=== PATIENT | male | born 2000 | race Two or more races ===

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

== ENCOUNTER 2022-04-30 23:16 | Emergency (ER) | payer MEDICAID ==
[~2022-04-30] VITALS: Ht 172.7 cm; Wt 78.0 kg
[2022-05-01] MEDS ORDERED: ONDANSETRON HCL 4MG/2ML INJ IV STA (00:53)
[2022-05-01] MEDS ORDERED: MORPHINE SULFATE 4 MG/ML CPJ (NOT FOR IM USE) IV STA (00:53)
[2022-05-01] MEDS ORDERED: TETANUS, DIPHTHERIA, PERTUSSIS VAC/PF 0.5ML (>10YR OLD) IM ONE (01:00)
[2022-05-01] MEDS ORDERED: SODIUM CHLORIDE 0.9% 1,000 ML IV ONE (01:00)
[2022-05-01] MEDS ORDERED: CEFAZOLIN 1000MG PREMIX 50 ML IV ONE (01:00)
[2022-05-01 01:35] LABS: BASOPHILS % 0.2 % (0.0-2.0); EOSINOPHILS % 3.9 % (0.0-5.0); HEMATOCRIT. 40.5 % (42.0-52.0); HEMOGLOBIN. 13.7 g/dL (14.0-18.0); LYMPHOCYTES % 21.5 % (20.0-50.0); MEAN CORPUSCULAR HEMOGLOBIN 30.3 pg (28.0-32.0); MEAN CORPUSCULAR VOLUME 89.9 fL (80.0-94.0); MONOCYTES % 4.8 % (2.0-8.0); NEUTROPHILS % 69.6 % (40.0-76.0); PLATELET 342 x1000/uL (130-400); RED BLOOD CELL COUNT 4.51 mill/uL (4.7-6.1); RED CELL DISTRIBUTION WIDTH 12.7 % (11.6-14.6)
[2022-05-01 02:01] LABS: CHLORIDE 107 mEq/L (98-107)
[2022-05-01] MEDS ORDERED: LIDOCAINE HCL 1% 20ML VIAL (Pyxis) INJ INFIL NR (02:30)
[2022-05-01 05:24] VITALS: BP 125/80
== END 2022-05-01 05:25 | disposition home or self-care (01) ==
LOC: ER 23:16
DX: S52.512A Displaced fracture of left radial styloid process, initial encounter for closed fracture (principal); S00.81XA Abrasion of other part of head, initial encounter; S00.01XA Abrasion of scalp, initial encounter; S60.812A Abrasion of left wrist, initial encounter; M79.10 Myalgia, unspecified site; Z88.0 Allergy status to penicillin; V03.90XA Pedestrian on foot injured in collision with car, pick-up truck or van, unspecified whether traffic or nontraffic accident, initial encounter; Y93.89 Activity, other specified; Y92.488 Other paved roadways as the place of occurrence of the external cause
CPT/HCPCS: 24650; 36415; 70450; 70486; 71045; 72125; 72170; 73110; 73562; 73590; 73610; 80053; 83690; 85025; 86850; 86900; 86901; 96361; 96365; 96375; 99285; J0690; J2270; J2405; J3490; J7030; 90715

== ENCOUNTER 2022-08-13 17:25 | Emergency (ER) | payer SELFPAY ==
[~2022-08-13] VITALS: Ht 188 cm; Wt 90.7 kg
[2022-08-13 17:31] VITALS: BP 126/71
[2022-08-14] MEDS ORDERED: DOXY100C5 MT (14:48)
== END 2022-08-13 22:42 | disposition left against medical advice (07) ==
LOC: ER 17:25
DX: Z53.21 Procedure and treatment not carried out due to patient leaving prior to being seen by health care provider (principal)

== ENCOUNTER 2022-08-14 10:06 | Emergency (ER) | payer SELFPAY ==
[~2022-08-14] VITALS: Ht 188 cm; Wt 91.0 kg
[2022-08-14 10:13] VITALS: BP 121/59
[2022-08-14] MEDS ORDERED: IBUPROFEN 600MG TABLET PO ONE (11:30)
[2022-08-14 12:25] LABS: CLARITY URINE CLOUDY (CLEAR); COLOR URINE YELLOW (YELLOW); KETONES URINE NEGATIVE (NEGATIVE); LEUKOCYTE ESTERASE URINE 2+ (NEGATIVE); NITRITE URINE NEGATIVE (NEGATIVE); OCCULT BLOOD URINE NEGATIVE (NEGATIVE); PH URINE 8.5 (4.5-8.0); PROTEIN URINE TRACE (NEGATIVE); SPECIFIC GRAVITY URINE 1.019 (1.005-1.030); UROBILINOGEN URINE 0.2 E.U./dL (0.2-1.0)
[2022-08-14] MEDS ORDERED: GENTAMICIN SULF 40MG/ML 2ML VIAL IM ONE (13:45)
[2022-08-14] MEDS ORDERED: AZITHROMYCIN 500 MG TABLET PO SCH (14:30)
[2022-08-14] MEDS ORDERED: DOXY100C5 MT (14:48)
== END 2022-08-14 15:10 | disposition home or self-care (01) ==
LOC: ER 10:06
DX: N45.2 Orchitis (principal); Z88.0 Allergy status to penicillin
CPT/HCPCS: 76870; 81003; 87077; 87086; 93976; 96372; 99284; J1580; 87491; 87591

== ENCOUNTER 2024-08-22 06:28 | Emergency (ER) | payer MEDICAID ==
[~2024-08-22] VITALS: Ht 185.4 cm; Wt 137.0 kg
[~2024-08-22 06:28] MED LIST changes: -DOXY-326 PO; +DOXY100C5 MT; +DOXY100C74 PO
[2024-08-22 06:36] VITALS: O2SAT 97
[2024-08-22 07:08] LABS: BASOPHILS % 0.3 % (0.0-2.0); EOSINOPHILS % 1.6 % (0.0-5.0); HEMATOCRIT. 43.4 % (42.0-52.0); HEMOGLOBIN. 14.6 g/dL (14.0-18.0); LYMPHOCYTES % 37.5 % (20.0-50.0); MEAN CORPUSCULAR HEMOGLOBIN 29.7 pg (28.0-32.0); MEAN CORPUSCULAR HGB CONC 33.7 g/dL (31.0-37.0); MEAN CORPUSCULAR VOLUME 88.3 fL (80.0-94.0); MEAN PLATELET VOLUME 7.4 fl (7.4-10.4); MONOCYTES % 7.1 % (2.0-8.0); NEUTROPHILS % 53.5 % (40.0-76.0); PLATELET 330 x1000/uL (130-400); RED BLOOD CELL COUNT 4.91 mill/uL (4.7-6.1); RED CELL DISTRIBUTION WIDTH 12.7 % (11.6-14.6); WHITE BLOOD COUNT 7.3 x1000/uL (4.5-11.0)
[2024-08-22 07:19] LABS: CARBON DIOXIDE 28 mEq/L (21-32); CHLORIDE 106 mEq/L (98-107); SODIUM 141 mEq/L (136-145)
[2024-08-22 07:20] LABS: CALCIUM 9.9 mg/dL (8.7-10.4)
[2024-08-22 07:25] LABS: CREATININE 1.2 mg/dL (0.6-1.3); GLUCOSE 107 mg/dL (70-105); UREA NITROGEN BLOOD 16 mg/dL (9-23)
[2024-08-22 07:26] LABS: ALANINE AMINOTRANSFERASE 22 IU/L (10-49); ASPARTATE AMINOTRANSFERASE 25 IU/L (<34)
[2024-08-22 07:27] LABS: ALBUMIN 4.7 g/dL (3.2-4.8); BILIRUBIN DIRECT 0.1 mg/dL (<=3.0); BILIRUBIN TOTAL 0.5 mg/dL (0.1-1.0); PROTEIN TOTAL 7.4 g/dL (6.0-8.3)
[2024-08-22] MEDS: ACETAMINOPHEN 325MG TABLET PO ONE (08:48)
[2024-08-22 09:16] LABS: CLARITY URINE CLEAR (CLEAR); COLOR URINE YELLOW (YELLOW); GLUCOSE URINE NEGATIVE (NEGATIVE); KETONES URINE NEGATIVE (NEGATIVE); LEUKOCYTE ESTERASE URINE NEGATIVE (NEGATIVE); NITRITE URINE NEGATIVE (NEGATIVE); OCCULT BLOOD URINE NEGATIVE (NEGATIVE); PROTEIN URINE NEGATIVE (NEGATIVE); SPECIFIC GRAVITY URINE 1.019 (1.005-1.030); UROBILINOGEN URINE 0.2 E.U./dL (0.2-1.0)
[2024-08-22 12:28] VITALS: BP 115/60; PULSE 71; RESP 18; TEMP 36.72516; O2SAT 97
== END 2024-08-22 12:29 | disposition home or self-care (01) ==
LOC: ER 06:39
DX: R10.9 Unspecified abdominal pain (principal); Z88.0 Allergy status to penicillin
CPT/HCPCS: 80076; 80048; 81003; 83690; 85025; 36415; 74176; 76705; 93005; 99284; Z7610